=== PATIENT | male | born 1975 | race Caucasian/White ===

== ENCOUNTER → 2017-11-11 | Outpatient (CLI) | payer OTHER ==
--- NOTE | 2017-11-11 14:21 | Diagnostic Imaging Report ---
PROCEDURE:HAND RIGHT 3 VIEWS AP \T\ LAT COMPARISON:None. INDICATIONS:FALL FINDINGS: Normal mineralization. Abnormal angulation of the fifth metatarsal neck, with questionable cortical step-off with volar angulation of the distal portion. No intra-articular extension. Other bony structures are intact. Joint spaces are preserved. Mild soft tissue swelling in the ulnar aspect of the hand. CONCLUSION: 1. Findings likely represent an acute, nondisplaced fracture of the fifth metatarsal neck in the setting of trauma. No intra-articular extension. Philip Smith M.D. Dictated by: Philip Smith M.D. on 11/11/2017 at 14:23 Electronically approved by: Philip Smith M.D. on 11/11/2017 at 14:23
== END ==
LOC: RAD 13:21
PROVIDERS: ATTEND Internal Medicine
DX: M79.641 Pain in right hand (principal)